=== PATIENT | female | born 1945 | race Caucasian/White ===

== ENCOUNTER → 2022-12-05 | Outpatient (CLI) | payer MEDICARE ==
--- NOTE | 2022-12-05 21:43 | CT ---
EXAMINATION TYPE: CT chest wo con DATE OF EXAM: 12/05/2022 COMPARISON: None HISTORY: uterine CA CT DLP: 105.4 mGycm, Automated exposure control for dose reduction was used. CONTRAST: Performed injected with 0 mL of Isovue 300. TECHNIQUE: Axial images were obtained at 5 mm thick sections. Reconstructed images are reviewed on [employer] computer in the coronal plane. FINDINGS: Portion of the thyroid visualized is normal. No suspicious lung nodules or focal infiltrates are present. No enlarged mediastinal or hilar adenopathy is evident. The ascending aorta diameter at the level o f the main pulmonary artery is 3.3 cm. The main pulmonary artery diameter at the bifurcation is 2.6 cm. Coronary calcification is present. Limited CT sections are obtained through the upper abdomen. Abdomen is essentially unremarkable. IMPRESSIONS: 1. No suspicious changes to suggest metastatic disease. 2. No acute pulmonary process.
== END | disposition home or self-care (01) ==
LOC: RADCTMAIN 06:53
PROVIDERS: ATTEND Internal Medicine
DX: C54.9 Malignant neoplasm of corpus uteri, unspecified (principal); E27.1 Primary adrenocortical insufficiency; E78.5 Hyperlipidemia, unspecified; B00.9 Herpesviral infection, unspecified
CPT/HCPCS: 71250

== ENCOUNTER → 2022-12-05 | Outpatient (CLI) | payer MEDICARE ==
--- NOTE | 2022-12-06 23:36 | MR ---
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 Malignant neoplasm of Corpus Uteri, Pain upper left abdomen COMPARISON: None TECHNIQUE: Multiplanar multi-sequence imaging was performed without contrast. Post contrast imaging was performed. Post IV contrast subtraction images were also submitted for review. IV Contrast: 5 cc Gadavist FINDINGS: LOWER CHEST: No gross irregularity. ABDOMEN Liver: Multiple lesions are seen within the liver the largest in the segment IVb 3.1 x 2.3 cm. Border s are somewhat lobulated and there appears to be septal enhancement on postcontrast and subtraction i maging. Gallbladder and Bile ducts: Unremarkable. Pancreas: Unremarkable. Spleen: Unremarkable. Adrenal glands: Unremarkable. Kidneys: High T2 signal renal cyst measuring up to 3.2 cm. Stomach and Bowel: Unremarkable as visualized. Peritoneum: No evidence of pneumoperitoneum or free fluid. Vasculature: Unremarkable. No aortic aneurysm. Musculoskeletal: The osseous structures appear intact. Enhancing lesion measuring 19 mm in the T12 ve rtebral body with a component that extends into the right pedicle Lymph Nodes: Retroperitoneal lymph nodes and diffusion weighted imaging. The be the level renal sinus measuring 11 mm) 9 mm in short axis on the left. Motion artifact limits evaluation slightly. A lymph node subcutaneous present in the no hepatis adjacent to the left hepatic lobe measuring Abdominal wall: Unremarkable. IMPRESSION: Findings suggestive of metastatic disease with indeterminate but favored 2 represent metastatic disea se, hepatic observation within segment IVb measuring up to 3.1 cm. Other findings include retroperito sage lymphadenopathy and T12 vertebral body lesion. Performed on a pet/CT may provide more complete e valuation for metastatic disease.
== END | disposition home or self-care (01) ==
LOC: RADMRIMAIN 17:31
PROVIDERS: ATTEND Internal Medicine
DX: C54.9 Malignant neoplasm of corpus uteri, unspecified (principal); E27.1 Primary adrenocortical insufficiency; E78.5 Hyperlipidemia, unspecified; B00.9 Herpesviral infection, unspecified; R59.0 Localized enlarged lymph nodes
CPT/HCPCS: 74183; A9585